=== PATIENT | male | born 1985 | race Caucasian/White ===

== ENCOUNTER 2021-09-27 17:30 | Inpatient (IN) | payer BC ==
[2021-09-27 18:14] LABS: #Lymphocytes 0.9 thou/uL (1.20-3.40); #Monocytes 1.2 thou/uL (0.11-0.59); #Neutrophils 11.6 thou/uL (1.40-6.50); %Basophils 0.1 % (0.0-1.0); %Eosinophils 0.2 % (0.0-10.0); %Lymphocytes 6.5 % (21.0-51.0); %Monocytes 8.6 % (0.0-10.0); %Neutrophils 84.7 % (42.0-75.0); Mean Corpuscular HGB CONC 34.1 g/dL (32.0-36.0); Mean Corpuscular Hemoglobin 29.5 pg (27.0-31.0); Mean Corpuscular Volume 86.6 fL (78.0-98.0); Mean Platelet Volume 9.5 fL (7.4-10.4); Platelet Count 209 thou/uL (130-400); RBC Distribution Width 11.8 % (11.5-14.5); Red Blood Cell (RBC) Count 3.37 mill/uL (4.70-6.10); White Blood Cell (WBC) Count 13.7 thou/uL (4.8-10.8)
[2021-09-27 18:35] LABS: ALT (SGPT) 10 U/L (8-55); AST (SGOT) 11 U/L (5-34); Albumin 3.7 g/dL (3.5-5.0); Alkaline Phosphatase 74 U/L (40-110); Anion Gap 16 mmol/L (10-20); BUN (Urea Nitrogen) 25 mg/dL (8.9-20.6); Bilirubin, Total 1.9 mg/dL (0.2-1.2); Calc. Creatinine Clearance 0 mL/min (70-130); Calcium 8.7 mg/dL (7.8-10.44); Carbon Dioxide 22 mmol/L (22-29); Chloride 93 mmol/L (98-107); Globulin 4.4 g/dL (2.4-3.5); Glucose 203 mg/dL (70-105); Potassium 4.2 mmol/L (3.5-5.1); Protein, Total 8.1 g/dL (6.0-8.3); Sodium 127 mmol/L (136-145)
[2021-09-27] MEDS ORDERED: Cefepime 2 GM in Sodium Chloride 0.9% 100 ML IVPB SCH (19:00)
[2021-09-27] MEDS ORDERED: Cefepime 2 GM VIAL ONE (19:11)
[2021-09-27] MEDS ORDERED: Acetaminophen 325 MG TAB ONE (19:41)
[2021-09-27] MEDS ORDERED: Clindamycin/D5W 900 mg/50 ml Premix Bag ONE (19:56)
[2021-09-27] MEDS ORDERED: HYDROcodone/Acetaminophen 5/325 mg Tablet PO PRN (21:02)
[2021-09-27] MEDS ORDERED: Vancomycin HCl 1.5 GM in Sodium Chloride 0.9% 500 ML IVPB SCH (21:02)
[2021-09-27] MEDS ORDERED: HumaLOG 300 UNITS/3 ML VIAL SC PRN (21:02)
[2021-09-27] MEDS ORDERED: Dextrose 50% Abboject 50 ML SYRINGE SLOW IVP PRN (21:02)
[2021-09-27] MEDS ORDERED: Ondansetron PF 4 MG/2 ML Vial IVP PRN (21:02)
[2021-09-27] MEDS ORDERED: Dextrose 5% in Water 1,000 ML IV PRN (21:02)
[2021-09-27] MEDS ORDERED: Ondansetron ODT 4 MG TAB PO PRN (21:02)
[2021-09-27] MEDS ORDERED: Ketorolac Tromethamine 30 MG/ML VIAL IVP PRN (21:04)
[2021-09-27] MEDS ORDERED: Saccharomyces boulardii 250 MG CAP PO SCH (21:15)
[2021-09-27 21:39] LABS: SARS-CoV-2 NAA Rapid Test DETECTED (NotDetected)
[2021-09-27] MEDS: Saccharomyces boulardii 250 MG CAP PO SCH (23:06)
[2021-09-27] MEDS: Famotidine 20 MG TAB PO SCH (23:07)
[2021-09-27] MEDS: Sodium Chloride 0.9% 1,000 ML IV SCH (23:08)
[2021-09-28] MEDS: Acetaminophen 500 MG TAB PO PRN ×2 (00:30→20:20)
[2021-09-28 01:26] VITALS: BMI 26.7
[2021-09-28] MEDS ORDERED: TETANUS, DIPHTHERIA TOX,ADULT (TDVAX) 0.5 ML VIAL IM ONE (03:30)
[2021-09-28 04:07] LABS: #Lymphocytes 0.7 thou/uL (1.20-3.40); #Monocytes 1.1 thou/uL (0.11-0.59); #Neutrophils 8.1 thou/uL (1.40-6.50); %Basophils 0.1 % (0.0-1.0); %Eosinophils 0.1 % (0.0-10.0); %Monocytes 10.9 % (0.0-10.0); %Neutrophils 81.9 % (42.0-75.0); Hemoglobin 8.2 g/dL (14.0-18.0); Mean Corpuscular HGB CONC 33.7 g/dL (32.0-36.0); Mean Corpuscular Hemoglobin 29.8 pg (27.0-31.0); Mean Corpuscular Volume 88.4 fL (78.0-98.0); Mean Platelet Volume 9.9 fL (7.4-10.4); Platelet Count 169 thou/uL (130-400); RBC Distribution Width 11.8 % (11.5-14.5); Red Blood Cell (RBC) Count 2.76 mill/uL (4.70-6.10); White Blood Cell (WBC) Count 9.8 thou/uL (4.8-10.8)
[2021-09-28] MEDS: Clindamycin/D5W 900 MG in Premix Bag 1 BAG IVPB SCH ×3 (04:27→19:42)
[2021-09-28 04:33] LABS: ALT (SGPT) 9 U/L (8-55); AST (SGOT) 8 U/L (5-34); Alkaline Phosphatase 83 U/L (40-110); Anion Gap 15 mmol/L (10-20); BUN (Urea Nitrogen) 18 mg/dL (8.9-20.6); Bilirubin, Total 1.3 mg/dL (0.2-1.2); Calc. Creatinine Clearance 113 mL/min (70-130); Calcium 7.8 mg/dL (7.8-10.44); Carbon Dioxide 19 mmol/L (22-29); Chloride 99 mmol/L (98-107); Globulin 3.4 g/dL (2.4-3.5); Glucose 202 mg/dL (70-105); Potassium 4.3 mmol/L (3.5-5.1); Protein, Total 6.4 g/dL (6.0-8.3); Sodium 129 mmol/L (136-145)
[2021-09-28] MEDS: Cefepime 2 GM in Sodium Chloride 0.9% 100 ML IVPB SCH ×2 (05:48→17:52)
[2021-09-28] MEDS: Sodium Chloride 0.9% 1,000 ML IV SCH ×2 (05:52→13:25)
[2021-09-28] MEDS: HumaLOG 300 UNITS/3 ML VIAL SC PRN (06:40)
[2021-09-28] MEDS ORDERED: Famotidine/PF 20 mg/2ml Vial ONE (09:59)
[2021-09-28] MEDS ORDERED: fentaNYL Citrate/PF 100 MCG/2 ML SYRINGE ONE (09:59)
[2021-09-28] MEDS ORDERED: PROPOFOL 200 MG/20 ML VIAL ONE (10:11)
[2021-09-28] MEDS ORDERED: Lidocaine 1% PF 5 ML VIAL ONE (10:11)
[2021-09-28] MEDS ORDERED: Metoclopramide HCl 10 MG/2 ML VIAL ONE (10:11)
[2021-09-28] MEDS ORDERED: Ondansetron PF 4 MG/2 ML Vial ONE (10:11)
[2021-09-28] MEDS ORDERED: ePHEDrine 50 MG/ML VIAL ONE (10:11)
[2021-09-28] MEDS ORDERED: PHENYLEPHRINE-NS 100 MCG/ML 10 ML SYRINGE ONE (10:11)
[2021-09-28] MEDS ORDERED: Promethazine HCl 25 MG/ML VIAL IVPB PRN (10:47)
[2021-09-28] MEDS ORDERED: PACU-Morphine 4MG/ML VIAL SLOW IVP PRN (10:47)
[2021-09-28] MEDS ORDERED: Ondansetron HCl/PF 4 MG/2 ML Vial IVP PRN (10:47)
[2021-09-28] MEDS ORDERED: Promethazine HCl 25 MG/ML VIAL IM PRN (10:47)
[2021-09-28] MEDS ORDERED: Fentanyl 100 MCG/2 ML VIAL ONE (11:46)
[2021-09-28] MEDS: VANCOMYCIN 1.25 GM/250 ML BAG 1.25 GM in Premix Bag 1 BAG IVPB SCH ×2 (13:07→20:20)
[2021-09-28] MEDS: Famotidine 20 MG TAB PO SCH ×2 (13:08→20:20)
[2021-09-28] MEDS: Enoxaparin Sodium 40 MG/0.4 ML SYRINGE SC SCH (20:21)
[2021-09-28] MEDS: HYDROcodone/Acetaminophen 5/325 mg Tablet PO PRN (22:05)
[2021-09-29] MEDS: Clindamycin/D5W 900 MG in Premix Bag 1 BAG IVPB SCH ×3 (04:03→19:29)
[2021-09-29] MEDS: Cefepime 2 GM in Sodium Chloride 0.9% 100 ML IVPB SCH ×2 (06:03→18:39)
[2021-09-29] MEDS: HumaLOG 300 UNITS/3 ML VIAL SC PRN ×2 (06:23→12:24)
[2021-09-29 08:38] LABS: Vancomycin, Trough 14.6 ug/mL
[2021-09-29] MEDS: Aspirin 81 mg Enteric Coated Tablet PO SCH (08:56)
[2021-09-29] MEDS: Famotidine 20 MG TAB PO SCH ×2 (08:56→21:19)
[2021-09-29] MEDS: Saccharomyces boulardii 250 MG CAP PO SCH (08:57)
[2021-09-29] MEDS: VANCOMYCIN 1.25 GM/250 ML BAG 1.25 GM in Premix Bag 1 BAG IVPB SCH ×2 (10:40→21:18)
[2021-09-29] MEDS: Acetaminophen 500 MG TAB PO PRN (19:29)
[2021-09-29] MEDS: Atorvastatin Calcium 40 MG TAB PO SCH (21:19)
[2021-09-29] MEDS: Enoxaparin Sodium 40 MG/0.4 ML SYRINGE SC SCH (21:21)
[2021-09-30] MEDS: Clindamycin/D5W 900 MG in Premix Bag 1 BAG IVPB SCH (04:10)
[2021-09-30 04:26] LABS: Hemoglobin 7.1 g/dL (14.0-18.0); Mean Corpuscular HGB CONC 33.2 g/dL (32.0-36.0); Mean Corpuscular Hemoglobin 29.5 pg (27.0-31.0); Mean Corpuscular Volume 88.9 fL (78.0-98.0); Mean Platelet Volume 9.7 fL (7.4-10.4); Platelet Count 194 thou/uL (130-400); RBC Distribution Width 11.8 % (11.5-14.5); Red Blood Cell (RBC) Count 2.42 mill/uL (4.70-6.10); White Blood Cell (WBC) Count 4.6 thou/uL (4.8-10.8)
[2021-09-30 04:49] LABS: Anion Gap 15 mmol/L (10-20); BUN (Urea Nitrogen) 13 mg/dL (8.9-20.6); Calc. Creatinine Clearance 143 mL/min (70-130); Calcium 8.2 mg/dL (7.8-10.44); Carbon Dioxide 20 mmol/L (22-29); Chloride 102 mmol/L (98-107); Glucose 151 mg/dL (70-105); Potassium 3.6 mmol/L (3.5-5.1); Sodium 133 mmol/L (136-145)
[2021-09-30] MEDS: Cefepime 2 GM in Sodium Chloride 0.9% 100 ML IVPB SCH (05:36)
[2021-09-30] MEDS: Aspirin 81 mg Enteric Coated Tablet PO SCH (09:29)
[2021-09-30] MEDS: Famotidine 20 MG TAB PO SCH ×2 (09:29→20:28)
[2021-09-30] MEDS: Saccharomyces boulardii 250 MG CAP PO SCH (09:29)
[2021-09-30] MEDS: Acetaminophen 500 MG TAB PO PRN (09:29)
[2021-09-30] MEDS: VANCOMYCIN 1.25 GM/250 ML BAG 1.25 GM in Premix Bag 1 BAG IVPB SCH (10:01)
[2021-09-30] MEDS: HYDROcodone/Acetaminophen 5/325 mg Tablet PO PRN (10:44)
[2021-09-30] MEDS: HumaLOG 300 UNITS/3 ML VIAL SC PRN ×2 (11:34→17:37)
[2021-09-30] MEDS: cefTRIAXone\\ROCEPHIN 2 GM in Sodium Chloride 0.9% 100 ML IVPB SCH (11:34)
[2021-09-30] MEDS ORDERED: HYDROcodone/Acetaminophen 5/325 mg Tablet PO SCH (11:45)
[2021-09-30 14:35] LABS: Hemoglobin 8.2 g/dL (14.0-18.0)
[2021-09-30 19:30] LABS: Vancomycin, Trough 18.1 ug/mL
[2021-09-30] MEDS: Enoxaparin Sodium 40 MG/0.4 ML SYRINGE SC SCH (20:27)
[2021-09-30] MEDS: metroNIDAZOLE 500 MG TAB PO SCH (20:28)
[2021-09-30] MEDS: Atorvastatin Calcium 40 MG TAB PO SCH (20:28)
[2021-10-01] MEDS: HumaLOG 300 UNITS/3 ML VIAL SC PRN ×3 (05:47→17:43)
[2021-10-01] MEDS: metroNIDAZOLE 500 MG TAB PO SCH ×2 (09:19→20:32)
[2021-10-01] MEDS: Famotidine 20 MG TAB PO SCH ×2 (09:19→20:32)
[2021-10-01] MEDS: Aspirin 81 mg Enteric Coated Tablet PO SCH (09:19)
[2021-10-01] MEDS: Saccharomyces boulardii 250 MG CAP PO SCH (09:19)
[2021-10-01] MEDS: cefTRIAXone\\ROCEPHIN 2 GM in Sodium Chloride 0.9% 100 ML IVPB SCH (11:32)
[2021-10-01] MEDS: Atorvastatin Calcium 40 MG TAB PO SCH (20:32)
[2021-10-01] MEDS: Enoxaparin Sodium 40 MG/0.4 ML SYRINGE SC SCH (20:32)
[2021-10-02 04:35] LABS: Hemoglobin 8.7 g/dL (14.0-18.0); Mean Corpuscular HGB CONC 32.9 g/dL (32.0-36.0); Mean Corpuscular Hemoglobin 29.3 pg (27.0-31.0); Mean Platelet Volume 8.9 fL (7.4-10.4); Platelet Count 334 thou/uL (130-400); RBC Distribution Width 11.9 % (11.5-14.5); Red Blood Cell (RBC) Count 2.97 mill/uL (4.70-6.10); White Blood Cell (WBC) Count 4.1 thou/uL (4.8-10.8)
[2021-10-02 04:41] VITALS: TEMP 97.9
[2021-10-02 04:51] LABS: Anion Gap 12 mmol/L (10-20); BUN (Urea Nitrogen) 9 mg/dL (8.9-20.6); Calc. Creatinine Clearance 152 mL/min (70-130); Calcium 9.1 mg/dL (7.8-10.44); Carbon Dioxide 26 mmol/L (22-29); Chloride 103 mmol/L (98-107); Glucose 199 mg/dL (70-105); Potassium 3.6 mmol/L (3.5-5.1); Sodium 137 mmol/L (136-145)
[2021-10-02] MEDS: HumaLOG 300 UNITS/3 ML VIAL SC PRN (06:08)
[2021-10-02] MEDS: metroNIDAZOLE 500 MG TAB PO SCH (08:13)
[2021-10-02] MEDS: Aspirin 81 mg Enteric Coated Tablet PO SCH (08:13)
[2021-10-02] MEDS: Saccharomyces boulardii 250 MG CAP PO SCH (08:13)
[2021-10-02] MEDS: Famotidine 20 MG TAB PO SCH (08:13)
[2021-10-02 10:38] VITALS: BP 123/75
== END 2021-10-02 10:55 | disposition home or self-care (01) | DRG 853 ==
LOC: ERS 17:30 → 2NO 19:57
PROVIDERS: ADMIT Family Medicine; ATTEND Internal Medicine
PROC: 8E0ZXY6 Isolation (ICD-10-PCS; 2021-09-27)
PROC: 0Y6N0ZB Detachment at Left Foot, Partial 2nd Ray, Open Approach (ICD-10-PCS; principal; 2021-09-28)
PROC: 0Y6N0ZC Detachment at Left Foot, Partial 3rd Ray, Open Approach (ICD-10-PCS; 2021-09-28)
PROC: 0Y6N0ZD Detachment at Left Foot, Partial 4th Ray, Open Approach (ICD-10-PCS; 2021-09-28)
PROC: 0JBR0ZZ Excision of Left Foot Subcutaneous Tissue and Fascia, Open Approach (ICD-10-PCS; 2021-09-30)
DX: A40.9 Streptococcal sepsis, unspecified (principal); A48.0 Gas gangrene; U07.1 COVID-19; L03.116 Cellulitis of left lower limb; N17.9 Acute kidney failure, unspecified; E87.1 Hypo-osmolality and hyponatremia; L02.612 Cutaneous abscess of left foot; E11.52 Type 2 diabetes mellitus with diabetic peripheral angiopathy with gangrene; F32.A Depression, unspecified; F41.9 Anxiety disorder, unspecified; R65.20 Severe sepsis without septic shock; E11.65 Type 2 diabetes mellitus with hyperglycemia; E11.628 Type 2 diabetes mellitus with other skin complications; D64.9 Anemia, unspecified; E11.621 Type 2 diabetes mellitus with foot ulcer; L97.529 Non-pressure chronic ulcer of other part of left foot with unspecified severity; Z98.890 Other specified postprocedural states; Z79.84 Long term (current) use of oral hypoglycemic drugs
CPT/HCPCS: 36415; 36416; 80048; 80053; 80202; 83036; 83605; 85025; 85027; 87040; 87070; 87077; 87186; 87205; 88305; 88311; 93005; 93923; 96365; 96367; J0692; J0696; J1650; J1815; J2405; J2704; J2765; J3010; J3370; J3490; J7030; J7050; S0028; U0002

== ENCOUNTER 2023-11-07 13:01 | Outpatient (CLI) | payer BC | END 2023-11-07 13:02 | disposition home or self-care (01) | LOC: BICMRI 13:01 | PROVIDERS: ATTEND Nurse Practitioner Family | DX: E11.621 Type 2 diabetes mellitus with foot ulcer (principal); E11.65 Type 2 diabetes mellitus with hyperglycemia; L97.514 Non-pressure chronic ulcer of other part of right foot with necrosis of bone; M86.172 Other acute osteomyelitis, left ankle and foot; M86.8X7 Other osteomyelitis, ankle and foot; M00.871 Arthritis due to other bacteria, right ankle and foot | CPT/HCPCS: 82565 ==